=== PATIENT | female | born 1955 | race American Indian/Alaskan Native ===

== ENCOUNTER 2019-06-08 11:36 | Day surgery (SDC) | payer MEDICARE, MEDICAID ==
[~2019-06-08 11:36] MED LIST: Lactated Ringers 1,000 ML IV SCH
[2019-06-08] MEDS ORDERED: Lidocaine 1% with EPINEPHrine 1:100,000 20 ML MDV ONE ×3 (11:37→15:05)
[2019-06-08] MEDS ORDERED: Midazolam 1 MG/ML 2 ML SDV IV ONE ×7 (11:37→15:07)
[2019-06-08] MEDS ORDERED: Sodium Chloride 0.9% 10 ML SDV FLUSH ONE (12:00)
[2019-06-08] MEDS ORDERED: fentaNYL 100 MCG/2 ML SDV ONE ×2 (13:28→13:29)
[2019-06-08] MEDS ORDERED: Midazolam 1 MG/ML 2 ML SDV ONE ×2 (13:28→13:29)
[2019-06-08] MEDS ORDERED: Lidocaine 1% with EPINEPHrine 1:100,000 30 ML MDV INJECT ONE ×2 (15:02→15:05)
[2019-06-08] MEDS ORDERED: Acetaminophen/oxyCODONE 325-5 MG Tab PO ONE (15:43)
--- NOTE | 2019-06-08 17:44 | OR ---
DATE: 06/08/2019 PREOPERATIVE DIAGNOSIS: Bleeding internal and external hemorrhoids. POSTOPERATIVE DIAGNOSIS: Bleeding internal and external hemorrhoids. PROCEDURE: Resection of complex internal and external hemorrhoid regions x2. ANESTHESIA: Local plus conscious sedation. SPECIMEN: Hemorrhoid tissue. OPERATIVE FINDINGS: Combination of large external and internal hemorrhoids. INDICATION FOR PROCEDURE: This 63-year-old female has been diagnosed with bleeding hemorrhoids. She actually is anemic enough and has required several blood transfusions. Her hemoglobin still only hovers around 9. She does have bright red rectal bleeding. She has had a recent colonoscopy that was negative. PROCEDURE IN DETAIL: After adequate preparation, a perianal block was done using 1% Xylocaine with epinephrine. Examination of the anal canal did show large hemorrhoids, both internal and external and complex. I chose to resect 2 opposing hemorrhoid areas. Allis clamp was placed along the external hemorrhoid in the posterior right quadrant of the anal opening. The incision was made with the cautery down to the base of the hemorrhoid complex. The internal hemorrhoid was elevated up off the sphincter and a large curved clamp was used to clamp across the hemorrhoid and the external and internal hemorrhoid complex was cut out. The excision was then oversewn using a running 2-0 Vicryl suture. This was reinforced in a couple of places with some single stitches. A second complex was taken out on the patient's anterior left quadrant. In a like manner, the hemorrhoids were elevated off the sphincters. The clamp was used to cut off the distal hemorrhoids and the free edges were sewn together using a running 2-0 Vicryl stitch. Hemostasis seemed to be adequate. The patient tolerated the procedure well and possibly will need to do 2 other quadrants of large hemorrhoids remaining in the next month or 2. We will see how she does with this procedure, however. [facility] /[id number]
--- NOTE | 2019-07-04 03:24 | CN ---
SERVICE DATE: 07/03/2019 INTRODUCTION: This 63-year-old female had an extensive complex hemorrhoidectomy last month. She is here in the clinic for followup. Today in the clinic, she feels much better and the preoperative bleeding that she had before the surgery has markedly improved. She says she has some discomfort on by physical examination, a portion of the incision on the skin part came apart leaving a bare ulcer. This will heal in by secondary intention without any other treatment. The is still concerned that things will be okay, and I discussed with him my recommendation to follow her up again in 2 months if she still has some bleeding and would like to have this looked at again, might consider another exam under anesthesia with possible removal of the remaining few hemorrhoids that I can see on physical exam, but for the present time she is doing much better and she is going to put this off. We will see her in 2 months. [facility] /[id number]
== END 2019-06-08 16:48 | disposition home or self-care (01) ==
LOC: DL.SDS 11:36
PROVIDERS: ATTEND Surgery
DX: K64.8 Other hemorrhoids (principal); K64.4 Residual hemorrhoidal skin tags; D64.9 Anemia, unspecified; C64.9 Malignant neoplasm of unspecified kidney, except renal pelvis; C78.00 Secondary malignant neoplasm of unspecified lung; I10 Essential (primary) hypertension; E11.9 Type 2 diabetes mellitus without complications; Z79.84 Long term (current) use of oral hypoglycemic drugs; Z79.899 Other long term (current) drug therapy
CPT/HCPCS: 46260; A9270; J1642; J2250; J7120; 88304